=== PATIENT | female | born 1980 | race Caucasian/White ===

== ENCOUNTER 2018-02-11 20:25 | Emergency (ER) | payer MEDICAID ==
[~2018-02-11] VITALS: Ht 157.5 cm; Wt 56.8 kg
[2018-02-11 20:33] VITALS: Ht 157.5 cm; Wt 56.8 kg
[2018-02-11] MEDS ORDERED: VALIUM 2 MG TAB2 MG PO (22:01)
[2018-02-11] MEDS ORDERED: ULTRAM50 MG PO (22:01)
[2018-02-11 22:47] VITALS: BP 132/73
== END 2018-02-11 22:48 | disposition home or self-care (01) ==
LOC: D.ER 20:25
DX: S16.1XXA Strain of muscle, fascia and tendon at neck level, initial encounter (principal); V43.52XA Car driver injured in collision with other type car in traffic accident, initial encounter; Y93.89 Activity, other specified; Y92.410 Unspecified street and highway as the place of occurrence of the external cause; S09.90XA Unspecified injury of head, initial encounter; S29.012A Strain of muscle and tendon of back wall of thorax, initial encounter; M54.5 Low back pain; I10 Essential (primary) hypertension